=== PATIENT | female | born 1950 | race African-American/Black ===

== ENCOUNTER 2017-07-15 14:25 | Emergency (ER) | payer MEDICARE, OTHER ==
--- NOTE | 2017-07-15 15:06 | ER Document Report ---
ED Medical Screen (RME) - General Chief Complaint: Fall Injury Stated Complaint: FALL/FACIAL INJURY Time Seen by Provider: 07/15/17 15:01 Notes: RME DISCLOSURE I have seen this patient as part of a Rapid Medical Evaluation and, if applicable, placed any initially appropriate orders. The patient will be seen and fully evaluated, including a full history and physical exam, by a provider ( in Main ED or Fast Track) when a room becomes available. 67-year-old female status post fall after tripping over a concrete block and hit her head. Complains of a headache at this time. Not on blood thinners. Tetanus up-to-date within the past few years. TRAVEL OUTSIDE OF THE [place] IN LAST 30 DAYS: No - Related Data Allergies/Adverse Reactions: No Known Allergies Allergy (Verified 07/15/17 14:29) Past Medical History - Social History Chew tobacco use (# tins/day): No Frequency of alcohol use: None Drug Abuse: None - Past Medical History Cardiac Medical History: Reports: Hx Hypertension Pulmonary Medical History: Reports: Hx Bronchitis, Hx Pneumonia Renal/ Medical History: Denies: Hx Peritoneal Dialysis Physical Exam - Vital signs Vitals: Temp Pulse Resp BP Pulse Ox 97.8 F 68 16 186/78 H 97 07/15/17 14:32 07/15/17 14:32 07/15/17 14:32 07/15/17 14:32 07/15/17 14:32 Course - Vital Signs Vital signs: Temp Pulse Resp BP Pulse Ox 97.8 F 68 16 186/78 H 97 07/15/17 14:32 07/15/17 14:32 07/15/17 14:32 07/15/17 14:32 07/15/17 14:32
--- NOTE | 2017-07-15 15:33 | RADIOLOGY REPORT (SQ) ---
EXAM DESCRIPTION: CT HEAD WITHOUT COMPLETED DATE/TIME: 07/15/2017 3:17 pm REASON FOR STUDY: s/p fall COMPARISON: None. TECHNIQUE: Axial images acquired through the brain without intravenous contrast. Images reviewed wi th bone, brain and subdural windows. Images stored on PACS. All CT scanners at this facility use dose modulation, iterative reconstruction, and/or weight based d osing when appropriate to reduce radiation dose to as low as reasonably achievable (ALARA). [facility]: Dose Right [facility]: CareDose [facility]: Dose Right [facility]: Teradose 4D [facility]: Smart Grabbed RADIATION DOSE: CT Rad equipment meets quality standard of care and radiation dose reduction techniq ues were employed. CTDIvol: 53.2 mGy. DLP: 991 mGy-cm. mGy. LIMITATIONS: None. FINDINGS: VENTRICLES: Normal size and contour. CEREBRUM: No masses. No hemorrhage. No midline shift. No evidence for acute infarction. Normal gra y/white matter differentiation. No areas of low density in the white matter. CEREBELLUM: No masses. No hemorrhage. No alteration of density. No evidence for acute infarction. EXTRAAXIAL SPACES: No fluid collections. No masses. ORBITS AND GLOBE: No intra- or extraconal masses. Normal contour of globe without masses. CALVARIUM: No fracture. PARANASAL SINUSES: No fluid or mucosal thickening. SOFT TISSUES: Frontal scalp soft tissue thickening. OTHER: No other significant finding. IMPRESSION: Frontal scalp soft tissue injury without underlying calvarial fracture or intracranial h emorrhage. EVIDENCE OF ACUTE STROKE: NO. COMMENT: Quality ID # [id number]: Final reports with documentation of one or more dose reduction techniques (e.g., Automated exposure control, adjustment of the mA and/or kV according to patient size, use of iterative reconstruction technique) TECHNICAL DOCUMENTATION: JOB ID: [id number] [employer]- All Rights Reserved Reading location - IP/workstation name: [email or web address]
--- NOTE | 2017-07-15 15:36 | RADIOLOGY REPORT (SQ) ---
EXAM DESCRIPTION: CT FACIAL AREA WITHOUT COMPLETED DATE/TIME: 07/15/2017 3:17 pm REASON FOR STUDY: s/p fall COMPARISON: None. TECHNIQUE: Noncontrasted images through the facial bones and orbits windowed for bone and soft tissu e. Additional coronal and sagittal reconstructed images reviewed. All images stored on PACS. All CT scanners at this facility use dose modulation, iterative reconstruction, and/or weight based d osing when appropriate to reduce radiation dose to as low as reasonably achievable (ALARA). [facility]: Dose Right [facility]: CareDose [facility]: Dose Right [facility]: Teradose 4D [facility]: Smart Pulmatrix RADIATION DOSE: CT Rad equipment meets quality standard of care and radiation dose reduction techniq ues were employed. CTDIvol: 30.4 mGy. DLP: 553 mGy-cm. mGy. LIMITATIONS: None. FINDINGS: FACIAL BONES: No fracture or bone lesion. ORBITS: Intact. No fracture. Symmetric intact globes and retroorbital soft tissues. PARANASAL SINUSES: Clear. No significant mucosal thickening, mass or fluid. No nasal polyps. Maxill bunny sinus outlets are patent. SOFT TISSUES: Frontal scalp soft tissue thickening. INFERIOR BRAIN: Limited view. No acute findings. OTHER: No other significant finding. IMPRESSION: Frontal scalp hematoma without underlying maxillofacial fracture. TECHNICAL DOCUMENTATION: JOB ID: [id number] Quality ID # [id number]: Final reports with documentation of one or more dose reduction techniques (e.g., Au tomated exposure control, adjustment of the mA and/or kV according to patient size, use of iterative reconstruction technique) 2010 [employer]- All Rights Reserved Reading location - IP/workstation name: [email or web address]
[2017-07-15] MEDS ORDERED: IBUPROFEN 800 MG TABLET PO ONE (15:39)
[2017-07-15] MEDS ORDERED: DIPH/PERTUSS(ACELL)/TETANUS VAC/PF 0.5 ML SYR (>=10YO) IM ONE (15:39)
--- NOTE | 2017-07-15 15:53 | ER Document Report ---
ED Fall - General Chief Complaint: Fall Injury Stated Complaint: FALL/FACIAL INJURY Time Seen by Provider: 07/15/17 15:01 Mode of Arrival: Ambulatory Information source: Patient Notes: Patient is a 67-year-old female who presents to the ER today for fall just prior to arrival outside of [employer] restaurant where she was walking out of the restaurant and tripped over a barrier in the parking lot, hitting her face on concrete. She did try to catch herself with her left hand but denies any pain to that now. Patient denies loss of consciousness, nausea, vomiting, blurred vision. She has an abrasion to the left side of her nose and an abrasion and some swelling to her forehead. states she is acting normally. She does not know when her last tetanus is. She is on a baby aspirin daily but no other blood thinners. TRAVEL OUTSIDE OF THE [place] IN LAST 30 DAYS: No - Related data Allergies/Adverse Reactions: No Known Allergies Allergy (Verified 07/15/17 14:29) Past Medical History - General Information source: Patient - Social History Smoking Status: Never Smoker Chew tobacco use (# tins/day): No Frequency of alcohol use: None Drug Abuse: None Family History: Reviewed & Not Pertinent Patient has suicidal ideation: No Patient has homicidal ideation: No - Past Medical History Cardiac Medical History: Reports: Hx Hypertension Pulmonary Medical History: Reports: Hx Bronchitis, Hx Pneumonia Renal/ Medical History: Denies: Hx Peritoneal Dialysis Review of Systems - Review of Systems Constitutional: No symptoms reported EENT: No symptoms reported Cardiovascular: No symptoms reported Respiratory: No symptoms reported Gastrointestinal: No symptoms reported Genitourinary: No symptoms reported Female Genitourinary: No symptoms reported Musculoskeletal: No symptoms reported Skin: See HPI Hematologic/Lymphatic: No symptoms reported Neurological/Psychological: No symptoms reported Physical Exam - Vital signs Vitals: Temp Pulse Resp BP Pulse Ox 97.8 F 68 16 186/78 H 97 07/15/17 14:32 07/15/17 14:32 07/15/17 14:32 07/15/17 14:32 07/15/17 14:32 - Notes Notes: PHYSICAL EXAMINATION: GENERAL: Well-appearing and in no acute distress. HEAD: Nonbleeding abrasion to the left side of the nose, hematoma to the center of the forehead with no bleeding, normocephalic. EYES: Pupils equal round and reactive to light, extraocular movements intact, sclera anicteric, conjunctiva are normal. ENT: ear canals without erythema or foreign body, TMs pearly hernandez with good bony landmarks, nares patent without bleeding, oropharynx clear without exudates. Moist mucous membranes. No dental fractures or bleeding in the mouth NECK: Normal range of motion, supple without lymphadenopathy LUNGS: CTAB and equal. No wheezes rales or rhonchi. HEART: Regular rate and rhythm without murmurs ABDOMEN: Soft, no tenderness. No guarding, no rebound BACK: no vertebral tenderness, normal ROM GI/: no CVA tenderness EXTREMITIES: Normal range of motion, no pitting edema. No cyanosis. NEUROLOGICAL: Cranial nerves grossly intact. Normal sensory/motor exams. PSYCH: Normal mood, normal affect. SKIN: Warm, Dry, normal turgor, no rashes or lesions noted Course - Re-evaluation Re-evalutation: 07/15/17 17:37 CT of the head and facial bones negative for any acute pathology. Patient given tetanus that she did not know when her last tetanus was. patient's wounds to her face cleansed with Shur-Clens and saline hair in the emergency department, I did give her Motrin for pain which she appreciated. Patient declines anything further for pain. She denies any pain anywhere else. - Vital Signs Vital signs: Temp Pulse Resp BP Pulse Ox 98.2 F 67 18 179/71 H 94 07/15/17 16:26 07/15/17 16:26 07/15/17 16:26 07/15/17 16:26 07/15/17 16:26 Discharge - Discharge Clinical Impression: Fall Qualifiers: Encounter type: initial encounter Qualified Code(s): W19.XXXA - Unspecified fall, initial encounter Facial injury Qualifiers: Encounter type: initial encounter Qualified Code(s): S09.93XA - Unspecified injury of face, initial encounter Condition: Stable Disposition: HOME, SELF-CARE Additional Instructions: Return immediately for any new or worsening symptoms. Follow up with primary care provider, call tomorrow to make followup appointment. Prescriptions: Ibuprofen [Motrin 800 mg Tablet] 800 mg PO Q8H PRN #30 tab PRN Reason: Referrals: EMILY COTA MD [Primary Care Provider] - Follow up as needed
[2017-07-15 16:28] VITALS: BP 179/71
== END 2017-07-15 16:26 | disposition home or self-care (01) ==
LOC: ER 14:25
DX: S09.93XA Unspecified injury of face, initial encounter (principal); R51 Headache; W01.198A Fall on same level from slipping, tripping and stumbling with subsequent striking against other object, initial encounter; Y92.481 Parking lot as the place of occurrence of the external cause; Z23 Encounter for immunization; Z79.82 Long term (current) use of aspirin; I10 Essential (primary) hypertension
CPT/HCPCS: 99283; 90471; 70450; 70486; 90715; A9270

== ENCOUNTER 2018-12-07 20:59 | Emergency (ER) | payer MEDICARE ==
[2018-12-07] MEDS ORDERED: ASPIRIN 81 MG TABLET, CHEWABLE PO ONE (22:29)
--- NOTE | 2018-12-07 23:26 | RADIOLOGY REPORT (SQ) ---
EXAM DESCRIPTION: [facility]: XR CHEST 2 VIEWS Views: 2 CLINICAL HISTORY: 68 years Female, cp COMPARISON: 02/18/2017 FINDINGS: The lungs are clear. No pneumothorax or significant pleural effusion. Cardiomediastinal silhouette is within normal limits. Bony structures are unremarkable for age. IMPRESSION: 1. No acute cardiothoracic abnormality.
--- NOTE | 2018-12-07 23:37 | EKG REPORT ---
SEVERITY:- BORDERLINE ECG - SINUS RHYTHM BORDERLINE T ABNORMALITIES, ANTERIOR LEADS : Confirmed by: You Bello MD 07-Dec-2018 23:37:20
--- NOTE | 2018-12-08 00:04 | ER Document Report ---
ED General - General Chief Complaint: Chest Pain Stated Complaint: CHEST PAIN Time Seen by Provider: 12/08/18 00:02 Primary Care Provider: NATASHA BLANK MD [ACTIVE STAFF] - Follow up in 3-5 days Notes: Patient is a 68-year-old female that presents to the emergency department for chief complaint of chest pain. Patient states she is been having on and off dull aching chest pain since yesterday, she has had no associated nausea or vomiting, and has not had any significant shortness of breath. Does not seem to be worse with exertion or better with rest. She has had no leg swelling, or redness. She does report she had recent surgery had a hysterectomy about 4 weeks ago, and she was diagnosed with endometrial cancer and that is why she had her hysterectomy, she states that she is cancer free after the surgery. She did not undergo chemotherapy or any other treatments. She denies having any chest pain at this time, and overall is feeling well. Denies prior history of coronary disease, but does have a history of hypertension hyperlipidemia, patient states she is a non-smoker. Past Medical History: Hypertension, GERD, hyperlipidemia, endometrial carcinoma Past Surgical History: Hysterectomy Social History: Denies tobacco, alcohol or drug use. Family History: Reviewed and noncontributory for presenting illness Allergies: Reviewed, see documented allergy list. REVIEW OF SYSTEMS: Other than noted above, the 12 point review of systems was reviewed with the patient and were negative, all pertinent findings are included in the HPI. PHYSICAL EXAMINATION: Vital signs reviewed, nursing noted reviewed. GENERAL: Well-appearing, well-nourished and in no acute distress. HEAD: Atraumatic, normocephalic. EYES: Eyes appear normal, extraocular movements intact, sclera anicteric, conjunctiva are normal. ENT: nares patent, oropharynx clear without exudates. Moist mucous membranes. NECK: Normal range of motion, supple without lymphadenopathy LUNGS: Breath sounds clear to auscultation bilaterally and equal. No wheezes rales or rhonchi. HEART: Regular rate and rhythm without murmurs ABDOMEN: Soft, nontender, normoactive bowel sounds. No rebound, guarding, or rigidity. No masses appreciated. Surgical incisional scar noted, appears to be healing well. EXTREMITIES: Nontender, good range of motion, no pitting or edema. NEUROLOGICAL: No focal neurological deficits. Moves all extremities spontaneously Motor and sensory grossly intact on exam. PSYCH: Normal mood, normal affect. SKIN: Warm, Dry, normal turgor, no rashes or lesions noted on exposed skin TRAVEL OUTSIDE OF THE [place] IN LAST 30 DAYS: No - Related Data Allergies/Adverse Reactions: No Known Allergies Allergy (Verified 07/15/17 14:29) Past Medical History - Social History Smoking Status: Never Smoker Family History: Reviewed & Not Pertinent - Past Medical History Cardiac Medical History: Reports: Hx Hypertension Pulmonary Medical History: Reports: Hx Bronchitis, Hx Pneumonia Renal/ Medical History: Denies: Hx Peritoneal Dialysis Physical Exam - Vital signs Vitals: Temp Pulse Resp BP Pulse Ox 97.8 F 57 L 18 177/61 H 100 12/07/18 21:20 12/07/18 21:20 12/07/18 21:20 12/07/18 21:20 12/07/18 21:20 Course - Re-evaluation Re-evalutation: Patient seen and examined vital signs reviewed. Laboratory data and/or imaging were ordered as appropriate for the patient's presenting symptoms and complaint, with consideration of any critical or life threatening conditions that may be associated with their obtained history and exam as noted above. Patient was treated with potassium replacement, as her potassium is 3.4, aspirin was ordered in triage. Results were reviewed when available and demonstrated unremarkable blood work, negative troponin, negative chest x-ray, however given the patient's recent surgery, and cancer history, I did obtain CT angiogram of the patient's chest, to rule out pulmonary embolism, and this was negative for PE, or any acute cardiopulmonary pathology. The patient was re-evaluated and was stable, had been chest pain-free throughout her entire ED course, her troponin is negative, CTA negative, I did not feel it was necessary to repeat a troponin on this patient, as her pain had been going on and off for a few days now, her troponins been negative, she is not having any further pain. She states she does have reflux disease, and takes Zantac once daily, advised her to increase that to twice daily and to follow-up with the director corporate compliance, for potential repeat stress testing, she states her last was about a year ago and it was negative. Evaluation was most consistent with chest pain, nonspecific, possibly reflux disease, low suspicion for cardiac etiology. Results were discussed with the patient at this point, after careful consideration I feel that that patient can be discharged from the emergency department, the patient was educated treatments and reasons to return to the emergency department based on their presumed diagnosis as noted above, they were advised to followup with a primary care physician in 2-3 days. Patient was agreeable to plan of care. *Note is created using voice recognition software and may contain spelling, syntax or grammatical errors. Laboratory 12/07/18 12/07/18 12/07/18 23:55 23:55 23:55 WBC 3.9 L RBC 3.57 L Hgb 9.8 L Hct 30.0 L MCV 84 MCH 27.6 MCHC 32.7 RDW 14.9 H Plt Count 284 Lymph % (Auto) 35.2 [place] % (Auto) 12.9 Eos % (Auto) 3.9 Baso % (Auto) 0.6 Absolute Neuts (auto) 1.9 Absolute Lymphs (auto) 1.4 Absolute Monos (auto) 0.5 Absolute Eos (auto) 0.2 Absolute Basos (auto) 0.0 Seg Neutrophils % 47.4 Sodium 137.7 Potassium 3.4 L Chloride 100 Carbon Dioxide 29 Anion Gap 9 BUN 7 Creatinine 0.58 Est GFR ( Amer) > 60 Est GFR (MDRD) Non-Af > 60 Glucose 101 Calcium 9.9 Total Bilirubin 0.8 Direct Bilirubin 0.2 Neonat Total Bilirubin Not Reportable Neonat Direct Bilirubin Not Reportable Neonat Indirect Bili Not Reportable AST 30 ALT 18 Alkaline Phosphatase 69 Creatine Kinase 69 CK-MB (CK-2) 0.59 Troponin I < 0.012 Total Protein 7.7 Albumin 4.4 Chest X-Ray 12/07/18 00:00 IMPRESSION: 1. No acute cardiothoracic abnormality. - Vital Signs Vital signs: Temp Pulse Resp BP Pulse Ox 98.2 F 63 12 171/71 H 100 12/08/18 02:43 12/08/18 02:43 12/08/18 02:43 12/08/18 02:43 12/08/18 02:43 - Laboratory Result Diagrams: 12/07/18 23:55 12/07/18 23:55 Laboratory results interpreted by me: 12/07/18 12/07/18 23:55 23:55 WBC 3.9 L RBC 3.57 L Hgb 9.8 L Hct 30.0 L RDW 14.9 H Potassium 3.4 L - EKG Interpretation by Me Additional EKG results interpreted by me: EKG demonstrates sinus rhythm with a ventricular rate of 63 bpm, normal axis, normal intervals, no ST elevation noted, no prior for comparison. Discharge - Discharge Clinical Impression: Hypokalemia Chest pain Qualifiers: Chest pain type: unspecified Qualified Code(s): R07.9 - Chest pain, unspecified Condition: Stable Disposition: HOME, SELF-CARE Instructions: Chest Pain of Unclear Cause ([facility]) Additional Instructions: I recommend increasing your Zantac 150 mg twice daily, please follow-up with your primary care, I have also listed a director corporate compliance, that works with [employer], to follow-up with, for possible repeat stress testing. Otherwise continue your home medications, and follow-up with your primary care. Referrals: NATASHA BLANK MD [ACTIVE STAFF] - Follow up in 3-5 days
[2018-12-08 00:11] LABS: ABSOLUTE EOSINOPHILS # (AUTO) 0.2 10^3/uL (0.0-0.6); ABSOLUTE LYMPHOCYTES (AUTO) 1.4 10^3/uL (0.5-4.7); ABSOLUTE MONOCYTES (AUTO) 0.5 10^3/uL (0.1-1.4); ABSOLUTE NEUT (AUTO) 1.9 10^3/uL (1.7-8.2); BASOPHILS % (AUTO) 0.6 % (0-2); EOSINOPHILS % (AUTO) 3.9 % (0-6); HEMOGLOBIN 9.8 g/dL (12.0-15.5); LYMPHOCYTES % (AUTO) 35.2 % (13-45); MEAN CORPUSCULAR HEMOGLOBIN 27.6 pg (27.0-33.4); MEAN CORPUSCULAR HGB CONC 32.7 g/dL (32.0-36.0); MEAN CORPUSCULAR VOLUME 84 fl (80-97); MONOCYTES % (AUTO) 12.9 % (3-13); PLATELET COUNT 284 10^3/uL (150-450); RED BLOOD COUNT 3.57 10^6/uL (3.72-5.28); RED CELL DISTRIBUTION WIDTH 14.9 % (11.5-14.0); SEGMENTED NEUTROPHILS % (AUTO) 47.4 % (42-78); TOTAL CELLS COUNTED % (AUTO) 100 %; WHITE BLOOD COUNT 3.9 10^3/uL (4.0-10.5)
[2018-12-08 00:35] LABS: ALBUMIN 4.4 g/dL (3.5-5.0); ALKALINE PHOSPHATASE 69 U/L (38-126); ANION GAP 9 (5-19); ASPARTATE AMINO TRANSFERASE 30 U/L (14-36); BILIRUBIN,DIRECT 0.2 mg/dL (0.0-0.4); BILIRUBIN,TOTAL 0.8 mg/dL (0.2-1.3); BLOOD UREA NITROGEN 7 mg/dL (7-20); CALCIUM 9.9 mg/dL (8.4-10.2); CARBON DIOXIDE 29 mmol/L (22-30); CHLORIDE 100 mmol/L (98-107); CREATINE KINASE 69 U/L (30-135); GLUCOSE 101 mg/dL (75-110); POTASSIUM 3.4 mmol/L (3.6-5.0); TOTAL PROTEIN 7.7 g/dL (6.3-8.2)
[2018-12-08] MEDS ORDERED: POTASSIUM CHLORIDE 10 MEQ CAPSULE.ER PO ONE (00:40)
[2018-12-08 00:45] LABS: CREATINE KINASE MB 0.59 ng/mL (<4.55)
[2018-12-08 00:46] LABS: TROPONIN I < 0.012 ng/mL
--- NOTE | 2018-12-08 02:08 | RADIOLOGY REPORT (SQ) ---
EXAM DESCRIPTION: CT CHEST ANGIOGRAPHY WITHOUT THEN WITH IV CONTRAST COMPLETED DATE/TME: 12/08/2018 00:40 CLINICAL HISTORY: 68 years Female, chest pain, recent surgery. HYSTERECTOMY 4 WEEKS AGO. Comparison: CR, same day. Technique: IV contrast. Coronal and sagittal reformat. 3d reconstruction. This exam was performed according to our departmental dose-optimization program, which includes automated exposure control, adjustment of the mA and/or kV according to patient size and/or use of iterative reconstruction technique.[facility]: Dose Right [facility]: CareDose [facility]: Dose Right [facility]: Teradose 4D [facility]: Smart [employer] LIMITATIONS: Quality of pulmonary arteriogram: Suboptimal. Findings: No pulmonary embolus. No right ventricular strain. Clear lungs. Old granulomatous disease. Inferior neck, axillae, mediastinum, airway, lymphatics, heart, vasculature, upper abdomen, and musculoskeleton appear otherwise unremarkable. Impression: No pulmonary embolus. No acute cardiopulmonary findings.
[2018-12-08 02:44] VITALS: BP 171/71
== END 2018-12-08 02:56 | disposition home or self-care (01) ==
LOC: ER 20:59
DX: E87.6 Hypokalemia (principal); R07.9 Chest pain, unspecified; I10 Essential (primary) hypertension
CPT/HCPCS: 93005; 99285; 36415; 82553; 82550; 85025; 80053; 84484; 71046; 71275; 93010; A9270 ×2

== ENCOUNTER 2020-03-25 11:32 | Inpatient (IN) | payer MEDICARE ==
--- NOTE | 2020-03-25 11:46 | ER Document Report ---
ED General - General Chief Complaint: Shortness Of Breath Stated Complaint: SHORTNESS OF BREATH Time Seen by Provider: 03/25/20 11:34 Mode of Arrival: Medic Information source: Patient TRAVEL OUTSIDE OF THE [place] IN LAST 30 DAYS: No - HPI Notes: Patient presents with shortness of breath. She states she had a positive Covid test 4 days ago at an outlying facility. She states since that time she has become progressively more short of breath with a dry cough. Some fever chills and fatigue as well. Her is also ill. She states that she was di scharged with vitamins and an anticoagulant. She denies being given any steroids or antibiotics. No vomiting or diarrhea. The shortness of breath is moderate to severe. Constant. Worse with exertion better with rest. - Related Data Allergies/Adverse Reactions: No Known Allergies Allergy (Verified 03/25/20 12:07) Past Medical History - General Information source: Patient - Social History Smoking Status: Never Smoker Frequency of alcohol use: None Drug Abuse: None Family History: Reviewed & Not Pertinent - Past Medical History Cardiac Medical History: Reports: Hx Hypertension Pulmonary Medical History: Reports: Hx Bronchitis, Hx Pneumonia Renal/ Medical History: Denies: Hx Peritoneal Dialysis Review of Systems - Review of Systems Constitutional: Chills, Fever, Malaise, Weakness Cardiovascular: denies: Chest pain, Palpitations Respiratory: Cough, Short of breath -: Yes All other systems reviewed and negative Physical Exam - Vital signs Vitals: Temp Pulse Ox 98.6 F 93 03/25/20 11:34 03/25/20 11:34 Interpretation: Normal - General General appearance: Appears well, Alert - HEENT Head: Normocephalic, Atraumatic Eyes: Normal Pupils: PERRL - Respiratory Respiratory status: Respiratory distress Breath sounds: Normal - Cardiovascular Rhythm: Regular Heart sounds: Normal auscultation Murmur: No - Abdominal Inspection: Normal Distension: No distension - Back Back: Normal, Nontender - Extremities General upper extremity: Normal inspection, Normal color, Normal ROM General lower extremity: Normal inspection, Normal color, Normal ROM - Neurological Neuro grossly intact: Yes Cognition: Normal Orientation: AAOx4 Brayan Coma Scale Eye Opening: Spontaneous Brayan Coma Scale Verbal: Oriented Brayan Coma Scale Motor: Obeys Commands Sunshine Coma Scale Total: 15 Speech: Normal Motor strength normal: LUE, RUE, LLE, RLE Sensory: Normal - Psychological Associated symptoms: Normal affect, Normal mood - Skin Skin Temperature: Warm Skin Moisture: Dry Skin Color: Normal Course - Re-evaluation Re-evalutation: 03/25/20 15:06 Patient presents with a known positive diagnosis of Covid. CT shows Covid pneumonia. Patient was ambulated with saturations decreasing into the 70% range. Patient will require admission for further treatment. - Vital Signs Vital signs: Temp Pulse Resp BP Pulse Ox 98.6 F 38 H 148/78 H 98 03/25/20 11:34 03/25/20 13:01 03/25/20 13:01 03/25/20 13:01 - Laboratory Results Result Diagrams: 03/25/20 11:55 03/25/20 11:55 Laboratory Results Interpreted: 03/25/20 03/25/20 03/25/20 11:55 11:55 12:45 WBC 3.6 L Hgb 10.7 L Hct 31.6 L RDW 14.1 H Lymph % (Auto) 11.0 L Absolute Lymphs (auto) 0.4 L Seg Neutrophils % 78.1 H VBG pH 7.46 H Sodium 134.5 L Potassium 3.3 L Carbon Dioxide 31 H AST 209 H ALT 250 H Urine Protein Urine Ketones 03/25/20 14:22 WBC Hgb Hct RDW Lymph % (Auto) Absolute Lymphs (auto) Seg Neutrophils % VBG pH Sodium Potassium Carbon Dioxide AST ALT Urine Protein 30 H Urine Ketones 20 H Critical Laboratory Results Reviewed: No Critical Results - Radiology Results Critical Radiology Results Reviewed: No Critical Results Discharge - Discharge Clinical Impression: Pneumonia due to COVID-19 virus Condition: Serious Disposition: ADMITTED INPATIENT Admitting Provider: Subha (Hospitalist) Unit Admitted: [facility]
--- NOTE | 2020-03-25 12:14 | RADIOLOGY REPORT (SQ) ---
EXAM DESCRIPTION: CHEST SINGLE VIEW IMAGES COMPLETED DATE/TIME: 03/25/2020 8:50 am REASON FOR STUDY: bed 6 sepsis protocol COMPARISON: 12/07/2018 EXAM PARAMETERS: NUMBER OF VIEWS: One view. TECHNIQUE: Single frontal radiographic view of the chest acquired. RADIATION DOSE: NA LIMITATIONS: None. FINDINGS: LUNGS AND PLEURA: Patchy bibasilar opacities may be infectious in etiology. No visualized pleural effusion or pneumothorax. MEDIASTINUM AND HILAR STRUCTURES: No masses. Contour normal. HEART AND VASCULAR STRUCTURES: Prominence of the cardiac silhouette likely due to AP technique. No s ignificant pulmonary vascular congestion. BONES: No acute findings. HARDWARE: None in the chest. OTHER: No other significant finding. IMPRESSION: New bibasilar opacities concerning for infection. Possible component of atelectasis. TECHNICAL DOCUMENTATION: JOB ID: [id number] 2010 [employer]- All Rights Reserved Reading location - IP/workstation name: [email or web address]
[2020-03-25 12:30] LABS: ABSOLUTE LYMPHOCYTES (AUTO) 0.4 10^3/uL (0.5-4.7); ABSOLUTE MONOCYTES (AUTO) 0.4 10^3/uL (0.1-1.4); ABSOLUTE NEUT (AUTO) 2.8 10^3/uL (1.7-8.2); BASOPHILS % (AUTO) 0.1 % (0-2); EOSINOPHILS % (AUTO) 0.1 % (0-6); HEMATOCRIT 31.6 % (36.0-47.0); HEMOGLOBIN 10.7 g/dL (12.0-15.5); MEAN CORPUSCULAR HEMOGLOBIN 28.3 pg (27.0-33.4); MEAN CORPUSCULAR HGB CONC 33.8 g/dL (32.0-36.0); MEAN CORPUSCULAR VOLUME 84 fl (80-97); MONOCYTES % (AUTO) 10.7 % (3-13); PLATELET COUNT 293 10^3/uL (150-450); RED BLOOD COUNT 3.77 10^6/uL (3.72-5.28); RED CELL DISTRIBUTION WIDTH 14.1 % (11.5-14.0); SEGMENTED NEUTROPHILS % (AUTO) 78.1 % (42-78); TOTAL CELLS COUNTED % (AUTO) 100 %; WHITE BLOOD COUNT 3.6 10^3/uL (4.0-10.5)
[2020-03-25 12:44] LABS: INTERNATIONAL RATION (INR) 1.14; PROTHROMBIN TIME 14.8 SEC (11.4-15.4)
[2020-03-25 12:47] LABS: ALBUMIN 3.6 g/dL (3.5-5.0); ALKALINE PHOSPHATASE 66 U/L (38-126); ANION GAP 5 (5-19); ASPARTATE AMINO TRANSFERASE 209 U/L (14-36); BILIRUBIN,DIRECT 0.2 mg/dL (0.0-0.4); BLOOD UREA NITROGEN 10 mg/dL (7-20); CARBON DIOXIDE 31 mmol/L (22-30); CHLORIDE 99 mmol/L (98-107); GLUCOSE 109 mg/dL (75-110); POTASSIUM 3.3 mmol/L (3.6-5.0); TOTAL PROTEIN 7.4 g/dL (6.3-8.2)
[2020-03-25 13:08] LABS: VENOUS BLOOD BASE EXCESS 3.3 mmol/L; VENOUS BLOOD HCO3 27.2 mmol/L (20-32); VENOUS BLOOD PCO2 38.9 mmHg (35-63); VENOUS BLOOD PH 7.46 (7.30-7.42)
--- NOTE | 2020-03-25 14:19 | EKG REPORT ---
SEVERITY:- NORMAL ECG - SINUS RHYTHM : Confirmed by: Salome Dillard MD 25-Mar-2020 14:18:20
--- NOTE | 2020-03-25 15:00 | RADIOLOGY REPORT (SQ) ---
EXAM DESCRIPTION: CTA CHEST IMAGES COMPLETED DATE/TIME: 03/25/2020 2:39 pm REASON FOR STUDY: sob COMPARISON: 12/08/2018 TECHNIQUE: CT scan of the chest performed using helical scanning technique with dynamic intravenous contrast injection. Images reviewed with lung, soft tissue and bone windows. Reconstructed coronal and sagittal MPR images reviewed. Additional 3 dimensional post-processing performed to develop Maximal Intensity Projection images (OK P). All images stored on PACS. All CT scanners at this facility use dose modulation, iterative reconstruction, and/or weight based d osing when appropriate to reduce radiation dose to as low as reasonably achievable (ALARA). [facility]: Dose Right [facility]: CareDose [facility]: Dose Right [facility]: Teradose 4D [facility]: Revision3 CONTRAST TYPE AND DOSE: contrast/concentration: Isovue 350.00 mmol/ml; Total Contrast Delivered: 68. 0 ml; Total Saline Delivered: 63.0 ml RENAL FUNCTION: GFR > 60. RADIATION DOSE: CT Rad equipment meets quality standard of care and radiation dose reduction techniq ues were employed. CTDIvol: 6.6 - 23.7 mGy. DLP: 815 mGy-cm. . LIMITATIONS: None. FINDINGS: LUNGS AND PLEURA: Diffuse bilateral airspace disease with associated ground-glass attenuat ion. No evidence of cavitation. No effusions. AORTA AND GREAT VESSELS: No aneurysm. No dissection. HEART: No pericardial effusion. Cardiomegaly. PULMONARY ARTERIES: No emboli visualized in the main pulmonary arteries or the segmental branches. HILAR AND MEDIASTINAL STRUCTURES: No identified masses or abnormal nodes. HARDWARE: None in the chest. UPPER ABDOMEN: No significant findings. Limited exam. THYROID AND OTHER SOFT TISSUES: No masses. No adenopathy. BONES: No acute or significant finding. 3D MIPS: Confirm above findings. OTHER: No other significant finding. IMPRESSION: 1. No PE. 2. Bilateral pneumonia. COMMENT: Commonly reported imaging features of COVID-19 pneumonia are present. Other processes suc h as influenza pneumonia and organizing pneumonia, as can be seen with drug toxicity and connective t issue disease, can cause a similar imaging pattern. [facility] Quality ID # [id number]: Final reports with documentation of one or more dose reduction techniques (e.g., Au tomated exposure control, adjustment of the mA and/or kV according to patient size, use of iterative reconstruction technique) TECHNICAL DOCUMENTATION: JOB ID: [id number] 2010 [employer]- All Rights Reserved Reading location - IP/workstation name: [email or web address]
[2020-03-25 15:01] LABS: APPEARANCE,URINE SLIGHTLY-CLOUDY; BILIRUBIN,URINE NEGATIVE (NEGATIVE); COLOR,URINE YELLOW; GLUCOSE, URINE NEGATIVE (NEGATIVE); KETONES,URINE 20 mg/dL (NEGATIVE); LEUKOCYTE ESTERASE,URINE NEGATIVE (NEGATIVE); NITRITE,URINE NEGATIVE (NEGATIVE); PROTEIN,URINE 30 mg/dL (NEGATIVE); URINE SPECIFIC GRAVITY 1.019; UROBILINOGEN,URINE NEGATIVE mg/dL (<2.0)
[2020-03-25] MEDS ORDERED: ACETAMINOPHEN 325 MG TABLET PO PRN (16:59)
[2020-03-25] MEDS ORDERED: ONDANSETRON HCL INJ/PF 4 MG/2 ML SDV IV PRN (16:59)
[2020-03-25] MEDS ORDERED: ONDANSETRON 4 MG TAB.RAPDIS PO PRN (16:59)
[2020-03-25] MEDS ORDERED: BISACODYL 10 MG SUPP.RECT PR PRN (17:07)
[2020-03-25] MEDS ORDERED: BISACODYL 5 MG TABEC PO PRN (17:07)
[2020-03-25] MEDS ORDERED: DOXYCYCLINE HYCLATE INJ 100 MG VIAL IV SCH (17:15)
[2020-03-25] MEDS ORDERED: IVERMECTIN 3 MG TABLET PO SCH (17:15)
[2020-03-25] MEDS: VITAMIN B COMPLEX TABLET PO SCH (18:00)
[2020-03-25] MEDS: ZINC SULFATE 220 MG CAPSULE PO SCH (18:00)
[2020-03-25] MEDS: ASCORBIC ACID 500 MG TABLET PO SCH (18:36)
[2020-03-25] MEDS: IVERMECTIN 3 MG TABLET PO SCH (18:36)
[2020-03-25] MEDS: CHOLECALCIFEROL (D3) 1,000 UNIT (25 MCG) TABLET PO SCH (18:39)
--- NOTE | 2020-03-25 18:59 | PDOC H&P ---
History of Present Illness Admission Date/PCP: 03/25/20 15:22 History of Present Illness: KARINA LAROSE is a 69 year old female with past medical history significant for HTN, HLD, cervical cancer status post total hysterectomy presents to the ED with 8-day history progressive headache/diarrhea/shortness of breath/POSEY which patient states started on 03/18 and she subsequently had a COVID-19 test which came back positive on 03/20. From there, patient symptoms gradually worsened until she was rather short of breath and required evaluation in the ED. Her also tested positive for COVID-19 and he is currently being admitted to the hospital as well reportedly. Patient's rapid Covid test in the ED was negative though this is very likely a false negative and she will be treated as Covid positive. Patient denies any fever/chills/cough. On admission, labs revealed very mild hypokalemia and oxygen desaturation with any ambulation dropping at times down into the 70s and 80s. Patient does not wear oxygen at home. Patient initially refused admission because her friends have been telling her she would get much worse Covid if she was surrounded by other people with Covid however the ED physician convince her to stay in the hospital and she agreed to admission. She was started on [facility] COVID-19 treatment protocol. Past Medical History Cardiac Medical History: Reports: Hypertension Pulmonary Medical History: Reports: Bronchitis, Pneumonia Past Surgical History Past Surgical History: Reports: Hysterectomy Social History Information Source: Patient Smoking Status: Never Smoker Electronic Cigarette use?: No - Advance Directive Resuscitation Status: Full Code Surrogate healthcare decision maker:: Admitting diagnosis: COVID-19 pneumonia All aspects of code status discussed with patient/POA including cardioversion, chest compressions, and intubation and the patient/POA indicated they wish to be full code MPOA is designated as: DaughterPatrice Time spent: Greater than 16 minutes Family History Family History: Reviewed & Not Pertinent, CAD, Malignancy Parental Family History Reviewed: Yes Children Family History Reviewed: Yes Sibling(s) Family History Reviewed.: Yes Medication/Allergy Home Medications: Aspirin [Aspirin EC] 81 mg PO DAILY 02/18/17 Telmisartan [Micardis] 40 mg PO DAILY 02/18/17 Ibuprofen [Motrin 800 mg Tablet] 800 mg PO Q8H PRN #30 tab 07/15/17 Allergies/Adverse Reactions: No Known Allergies Allergy (Verified 03/25/20 12:07) Review of Systems All systems: reviewed and no additional remarkable complaints except as stated - Per HPI otherwise negative Physical Exam Vital Signs: Temp Pulse Resp BP Pulse Ox 98.6 F 38 H 148/78 H 98 03/25/20 11:34 03/25/20 13:01 03/25/20 13:01 03/25/20 13:01 Intake & Output 03/24/20 03/25/20 03/26/20 06:59 06:59 06:59 Output Total 655 Balance -655 Weight 99.79 kg Exam: General appearance: PRESENT: no acute distress, well-developed, well-nourished, morbidly obese with BMI 32.5, -[place] female, appears acutely ill Head exam: PRESENT: atraumatic, normocephalic Eye exam: PRESENT: conjunctiva pink. ABSENT: scleral icterus Mouth exam: PRESENT: moist Respiratory exam: PRESENT: Mild crackles bilaterally ABSENT: rales, rhonchi, wheezes Cardiovascular exam: PRESENT: RRR. ABSENT: diastolic murmur, rubs, systolic murmur GI/Abdominal exam: PRESENT: normal bowel sounds, soft. ABSENT: distended, guarding, mass, organolmegaly, rebound, tenderness Neurological exam: PRESENT: alert, awake, oriented to person, oriented to place, oriented to time, oriented to situation Psychiatric exam: PRESENT: appropriate affect, normal mood Skin exam: PRESENT: dry, intact, warm Results Laboratory Results: 03/25/20 11:55 03/25/20 11:55 03/25/20 03/25/20 03/25/20 11:55 11:55 12:45 WBC 3.6 L RBC 3.77 Hgb 10.7 L Hct 31.6 L MCV 84 MCH 28.3 MCHC 33.8 RDW 14.1 H Plt Count 293 Seg Neutrophils % 78.1 H VBG pH 7.46 H VBG pCO2 38.9 VBG HCO3 27.2 VBG Base Excess 3.3 Sodium 134.5 L Potassium 3.3 L Chloride 99 Carbon Dioxide 31 H Anion Gap 5 BUN 10 Creatinine 0.64 Est GFR ( Amer) > 60 Glucose 109 Lactic Acid Calcium 9.0 Total Bilirubin 1.0 AST 209 H Alkaline Phosphatase 66 Total Protein 7.4 Albumin 3.6 Urine Color Urine Appearance Urine pH Ur Specific [place] Urine Protein Urine Glucose (UA) Urine Ketones Urine Blood Urine Nitrite Ur Leukocyte Esterase Urine WBC (Auto) Urine RBC (Auto) 03/25/20 03/25/20 12:45 14:22 WBC RBC Hgb Hct MCV MCH MCHC RDW Plt Count Seg Neutrophils % VBG pH VBG pCO2 VBG HCO3 VBG Base Excess Sodium Potassium Chloride Carbon Dioxide Anion Gap BUN Creatinine Est GFR ( Amer) Glucose Lactic Acid 1.1 Calcium Total Bilirubin AST Alkaline Phosphatase Total Protein Albumin Urine Color YELLOW Urine Appearance SLIGHTLY-CLOUDY Urine pH 6.0 Ur Specific [place] 1.019 Urine Protein 30 H Urine Glucose (UA) NEGATIVE Urine Ketones 20 H Urine Blood NEGATIVE Urine Nitrite NEGATIVE Ur Leukocyte Esterase NEGATIVE Urine WBC (Auto) 6 Urine RBC (Auto) 2 03/25/20 11:55 Troponin I < 0.012 Impressions: Chest X-Ray 03/25/20 11:34 IMPRESSION: New bibasilar opacities concerning for infection. Possible component of atelectasis. Chest/Abdomen CTA 03/25/20 11:42 IMPRESSION: 1. No PE. 2. Bilateral pneumonia. Assessment and Plan - Diagnosis (1) Pneumonia due to COVID-19 virus Is this a current diagnosis for this admission?: Yes Plan: -Symptoms/history consistent with covid-19 infection -Covid-19 test: Positive on 03/20, symptoms began on 03/18 -CXR showed: Bilateral infiltrates -CTPA showed: Negative for PE, bilateral pneumonia consistent with COVID-19 -standard of care vitamin supplements: zinc, ascorbic acid, vitamin d, melatonin -maintain magnesium of 2 mg/dL or higher -Current literature recommends against the use of remdesivir, plaquenil, and convalescent plasma -supplemental oxygen and BiPAP/CPAP as needed -prn combivent/nebs as able -do not hold anticoagulation unless actively bleeding or platelet count <50 -close monitoring for acute respiratory decline requiring ICU transfer and intubation -ivermectin/doxycycline combination therapy (2) Acute hypoxemic respiratory failure Is this a current diagnosis for this admission?: Yes Plan: Source is COVID-19 pneumonia Treatment as above Supplemental oxygen and positive pressure as needed (3) HTN (hypertension) Qualifiers: Hypertension type: essential hypertension Qualified Code(s): I10 - Essential (primary) hypertension Is this a current diagnosis for this admission?: Yes Plan: Home medication continued (4) HLD (hyperlipidemia) Qualifiers: Hyperlipidemia type: unspecified Qualified Code(s): E78.5 - Hyperlipidemia, unspecified Is this a current diagnosis for this admission?: Yes Plan: Diet controlled (5) History of cervical cancer Is this a current diagnosis for this admission?: Yes Plan: Status post total hysterectomy - Time Time Spent with patient: 35 or more minutes Medications reviewed and adjusted accordingly: Yes Anticipated Discharge Disposition: Home, Self Care Anticipated Discharge Timeframe: within 72 hours - Inpatient Certification Based on my medical assessment, after consideration of the patient's comorbidities, presenting symptoms, or acuity I expect that the services needed warrant INPATIENT care.: Yes I certify that my determination is in accordance with my understanding of Medicare's requirements for reasonable and necessary INPATIENT services [42 CFR 412.3e].: Yes Medical Necessity: Significant Comorbidiites Make Outpatient Treatment Too Risky, Need Close Monitoring Due to Risk of Patient Decompensation, Need For Continuous Telemetry Monitoring, Risk of Complication if Not Cared For in Hospital, Risk of Diagnosis Which Will Require Inpatient Eval/Care/Monitoring
[2020-03-25] MEDS: ENOXAPARIN SODIUM INJ 60 MG/0.6 ML DISP.SYRIN SUBCUT SCH (21:00)
[2020-03-25] MEDS: MELATONIN 5 MG TABLET PO SCH (22:03)
[2020-03-25] MEDS: DOXYCYCLINE HYCLATE 100 MG in DEXTROSE 5%-WATER 250 ML IV SCH (22:04)
[2020-03-26] MEDS: ENOXAPARIN SODIUM INJ 60 MG/0.6 ML DISP.SYRIN SUBCUT SCH ×2 (05:48→17:45)
[2020-03-26 07:41] LABS: ABSOLUTE LYMPHOCYTES (AUTO) 0.7 10^3/uL (0.5-4.7); ABSOLUTE MONOCYTES (AUTO) 0.5 10^3/uL (0.1-1.4); ABSOLUTE NEUT (AUTO) 2.5 10^3/uL (1.7-8.2); BASOPHILS % (AUTO) 0.4 % (0-2); EOSINOPHILS % (AUTO) 0.4 % (0-6); HEMATOCRIT 28.5 % (36.0-47.0); HEMOGLOBIN 9.4 g/dL (12.0-15.5); LYMPHOCYTES % (AUTO) 18.8 % (13-45); MEAN CORPUSCULAR HEMOGLOBIN 27.5 pg (27.0-33.4); MEAN CORPUSCULAR HGB CONC 32.8 g/dL (32.0-36.0); MEAN CORPUSCULAR VOLUME 84 fl (80-97); MONOCYTES % (AUTO) 12.5 % (3-13); RED BLOOD COUNT 3.41 10^6/uL (3.72-5.28); RED CELL DISTRIBUTION WIDTH 13.9 % (11.5-14.0); SEGMENTED NEUTROPHILS % (AUTO) 67.9 % (42-78); TOTAL CELLS COUNTED % (AUTO) 100 %; WHITE BLOOD COUNT 3.7 10^3/uL (4.0-10.5)
[2020-03-26 08:07] LABS: BLOOD UREA NITROGEN 9 mg/dL (7-20); CALCIUM 8.5 mg/dL (8.4-10.2); CARBON DIOXIDE 27 mmol/L (22-30); CHLORIDE 102 mmol/L (98-107); GLUCOSE 95 mg/dL (75-110); PHOSPHORUS 3.1 mg/dL (2.5-4.5); POTASSIUM 3.8 mmol/L (3.6-5.0)
[2020-03-26 08:12] LABS: ANION GAP 5 (5-19)
[2020-03-26 08:35] LABS: PLATELET COUNT 292 10^3/uL (150-450)
[2020-03-26] MEDS: LOSARTAN POTASSIUM 50 MG TABLET PO SCH (09:15)
[2020-03-26] MEDS: ASCORBIC ACID 500 MG TABLET PO SCH ×2 (09:15→17:46)
[2020-03-26] MEDS: ZINC SULFATE 220 MG CAPSULE PO SCH (09:15)
[2020-03-26] MEDS: DOCUSATE SODIUM 100 MG CAPSULE PO SCH (09:15)
[2020-03-26] MEDS: CHOLECALCIFEROL (D3) 1,000 UNIT (25 MCG) TABLET PO SCH (09:15)
[2020-03-26] MEDS: VITAMIN B COMPLEX TABLET PO SCH (09:15)
[2020-03-26] MEDS ORDERED: TELMISARTAN 40 MG PO SCH (10:00)
--- NOTE | 2020-03-26 17:44 | PDOC PROGRESS REPORT ---
Subjective Subjective:: KARINA LAROSE is a 69 year old female with past medical history significant for HTN, HLD, cervical cancer status post total hysterectomy presents to the ED with 8-day history progressive headache/diarrhea/shortness of breath/POSEY which patient states started on 03/18 and she subsequently had a COVID-19 test which came back positive on 03/20. From there, patient symptoms gradually worsened until she was rather short of breath and required evaluation in the ED. Her also tested positive for COVID-19 and he is currently being admitted to the hospital as well reportedly. Patient's rapid Covid test in the ED was negative though this is very likely a false negative and she will be treated as Covid positive. Patient denies any fever/chills/cough. On admission, labs revealed very mild hypokalemia and oxygen desaturation with any ambulation dropping at times down into the 70s and 80s. Patient does not wear oxygen at home. Patient initially refused admission because her friends have been telling her she would get much worse Covid if she was surrounded by other people with Covid however the ED physician convince her to stay in the hospital and she agreed to admission. She was started on [facility] COVID-19 treatment protocol. 03/26/2020 Pt doing well today, inflammatory markers will be rechecked tomorrow. I expect these to be lower on the other check tomorrow. Patient has saturation 90% on 2 L nasal cannula. I believe we can start weaning her oxygen in the next 24 to 48 hours. Overall, she appears to be doing quite well all things considered. Her urine culture is growing gram-negative rods although the UA did not show clear evidence of infection and she has no urinary complaints. She has no new complaints today. Reason For Visit: COVID 19,PNEUMONIA, ACUTE HYPOXIC RESPIRATORY Physical Exam Vital Signs: Temp Pulse Resp BP Pulse Ox 97.8 F 71 18 149/60 H 93 03/26/20 11:58 03/26/20 14:00 03/26/20 11:58 03/26/20 11:58 03/26/20 11:58 Intake & Output 03/25/20 03/26/20 03/27/20 06:59 06:59 06:59 Intake Total 250 Output Total 655 Balance -405 Weight 100.8 kg Exam: General appearance: PRESENT: no acute distress, well-developed, well-nourished, morbidly obese with BMI 32.5, -[place] female, states she is breathing without much difficulty today Head exam: PRESENT: atraumatic, normocephalic Eye exam: PRESENT: conjunctiva pink. ABSENT: scleral icterus Mouth exam: PRESENT: moist Respiratory exam: PRESENT: Mild crackles bilaterally ABSENT: rales, rhonchi, wheezes Cardiovascular exam: PRESENT: RRR. ABSENT: diastolic murmur, rubs, systolic murmur GI/Abdominal exam: PRESENT: normal bowel sounds, soft. ABSENT: distended, guarding, mass, organolmegaly, rebound, tenderness Neurological exam: PRESENT: alert, awake, oriented to person, oriented to place, oriented to time, oriented to situation Psychiatric exam: PRESENT: appropriate affect, normal mood Skin exam: PRESENT: dry, intact, warm Results Laboratory Results: 03/26/20 05:54 03/26/20 05:54 03/25/20 03/25/20 03/25/20 11:55 11:55 14:22 WBC RBC Hgb Hct MCV MCH MCHC RDW Plt Count Seg Neutrophils % Sodium Potassium Chloride Carbon Dioxide Anion Gap BUN Creatinine Est GFR ( Amer) Glucose Lactic Acid Calcium Phosphorus Magnesium Ferritin 2640.00 H C-Reactive Protein 184.0 H Urine Color YELLOW Urine Appearance SLIGHTLY-CLOUDY Urine pH 6.0 Ur Specific [place] 1.019 Urine Protein 30 H Urine Glucose (UA) NEGATIVE Urine Ketones 20 H Urine Blood NEGATIVE Urine Nitrite NEGATIVE Ur Leukocyte Esterase NEGATIVE Urine WBC (Auto) 6 Urine RBC (Auto) 2 03/25/20 03/25/20 03/26/20 19:00 22:30 05:54 WBC 3.7 L RBC 3.41 L Hgb 9.4 L Hct 28.5 L MCV 84 MCH 27.5 MCHC 32.8 RDW 13.9 Plt Count 292 Seg Neutrophils % 67.9 Sodium Potassium Chloride Carbon Dioxide Anion Gap BUN Creatinine Est GFR ( Amer) Glucose Lactic Acid 1.1 0.9 Calcium Phosphorus Magnesium Ferritin C-Reactive Protein Urine Color Urine Appearance Urine pH Ur Specific [place] Urine Protein Urine Glucose (UA) Urine Ketones Urine Blood Urine Nitrite Ur Leukocyte Esterase Urine WBC (Auto) Urine RBC (Auto) 03/26/20 05:54 WBC RBC Hgb Hct MCV MCH MCHC RDW Plt Count Seg Neutrophils % Sodium 133.2 L Potassium 3.8 Chloride 102 Carbon Dioxide 27 Anion Gap 5 BUN 9 Creatinine 0.53 Est GFR ( Amer) > 60 Glucose 95 Lactic Acid Calcium 8.5 Phosphorus 3.1 Magnesium 2.2 Ferritin C-Reactive Protein Urine Color Urine Appearance Urine pH Ur Specific [place] Urine Protein Urine Glucose (UA) Urine Ketones Urine Blood Urine Nitrite Ur Leukocyte Esterase Urine WBC (Auto) Urine RBC (Auto) 03/25/20 11:55 Troponin I < 0.012 Impressions: Chest X-Ray 03/25/20 11:34 IMPRESSION: New bibasilar opacities concerning for infection. Possible component of atelectasis. Chest/Abdomen CTA 03/25/20 11:42 IMPRESSION: 1. No PE. 2. Bilateral pneumonia. Assessment and Plan - Diagnosis (1) Pneumonia due to COVID-19 virus Is this a current diagnosis for this admission?: Yes (2) Acute hypoxemic respiratory failure Is this a current diagnosis for this admission?: Yes (3) HTN (hypertension) Qualifiers: Hypertension type: essential hypertension Qualified Code(s): I10 - Essential (primary) hypertension Is this a current diagnosis for this admission?: Yes (4) HLD (hyperlipidemia) Qualifiers: Hyperlipidemia type: unspecified Qualified Code(s): E78.5 - Hyperlipidemia, unspecified Is this a current diagnosis for this admission?: Yes (5) History of cervical cancer Is this a current diagnosis for this admission?: Yes - Plan Summary Summary: (1) Pneumonia due to COVID-19 virus Is this a current diagnosis for this admission?: Yes Plan: -Symptoms/history consistent with covid-19 infection -Covid-19 test: Positive on 03/20, symptoms began on 03/18 -CXR showed: Bilateral infiltrates -CTPA showed: Negative for PE, bilateral pneumonia consistent with COVID-19 -standard of care vitamin supplements: zinc, ascorbic acid, vitamin d, melatonin -maintain magnesium of 2 mg/dL or higher -Current literature recommends against the use of remdesivir, plaquenil, and convalescent plasma -supplemental oxygen and BiPAP/CPAP as needed -prn combivent/nebs as able -do not hold anticoagulation unless actively bleeding or platelet count <50 -close monitoring for acute respiratory decline requiring ICU transfer and intubation -ivermectin/doxycycline combination therapy Improving (2) Acute hypoxemic respiratory failure Is this a current diagnosis for this admission?: Yes Plan: Source is COVID-19 pneumonia Treatment as above Supplemental oxygen and positive pressure as needed (3) HTN (hypertension) Qualifiers: Hypertension type: essential hypertension Qualified Code(s): I10 - Essential (primary) hypertension Is this a current diagnosis for this admission?: Yes Plan: Home medication continued (4) HLD (hyperlipidemia) Qualifiers: Hyperlipidemia type: unspecified Qualified Code(s): E78.5 - Hyperlipidemia, unspecified Is this a current diagnosis for this admission?: Yes Plan: Diet controlled (5) History of cervical cancer Is this a current diagnosis for this admission?: Yes Plan: Status post total hysterectomy - Time Time Spent with patient: 35 or more minutes Medications reviewed and adjusted accordingly: Yes Anticipated Discharge Disposition: Home with Home Health Anticipated Discharge Timeframe: within 48 hours - Inpatient Certification Based on my medical assessment, after consideration of the patient's comorbidities, presenting symptoms, or acuity I expect that the services needed warrant INPATIENT care.: Yes I certify that my determination is in accordance with my understanding of Medicare's requirements for reasonable and necessary INPATIENT services [42 CFR 412.3e].: Yes Medical Necessity: Significant Comorbidiites Make Outpatient Treatment Too Risky, Need Close Monitoring Due to Risk of Patient Decompensation, Need For Continuous Telemetry Monitoring, Risk of Complication if Not Cared For in Hospital, Risk of Diagnosis Which Will Require Inpatient Eval/Care/Monitoring
[2020-03-26] MEDS: IVERMECTIN 3 MG TABLET PO SCH (17:46)
[2020-03-26] MEDS: DOXYCYCLINE HYCLATE 100 MG in DEXTROSE 5%-WATER 250 ML IV SCH (22:10)
[2020-03-26] MEDS: MELATONIN 5 MG TABLET PO SCH (22:11)
[2020-03-27 01:41] LABS: APPEARANCE,URINE SLIGHTLY-CLOUDY; BILIRUBIN,URINE NEGATIVE (NEGATIVE); COLOR,URINE YELLOW; GLUCOSE, URINE NEGATIVE (NEGATIVE); KETONES,URINE NEGATIVE (NEGATIVE); LEUKOCYTE ESTERASE,URINE NEGATIVE (NEGATIVE); NITRITE,URINE NEGATIVE (NEGATIVE); PROTEIN,URINE NEGATIVE (NEGATIVE); URINE SPECIFIC GRAVITY 1.014
[2020-03-27] MEDS: ENOXAPARIN SODIUM INJ 60 MG/0.6 ML DISP.SYRIN SUBCUT SCH ×2 (05:47→17:20)
[2020-03-27 06:10] LABS: HEMATOCRIT 28.2 % (36.0-47.0); HEMOGLOBIN 9.4 g/dL (12.0-15.5); MEAN CORPUSCULAR HEMOGLOBIN 27.9 pg (27.0-33.4); MEAN CORPUSCULAR HGB CONC 33.4 g/dL (32.0-36.0); MEAN CORPUSCULAR VOLUME 83 fl (80-97); PLATELET COUNT 312 10^3/uL (150-450); RED BLOOD COUNT 3.38 10^6/uL (3.72-5.28); RED CELL DISTRIBUTION WIDTH 13.9 % (11.5-14.0); WHITE BLOOD COUNT 3.4 10^3/uL (4.0-10.5)
[2020-03-27 06:27] LABS: BLOOD UREA NITROGEN 9 mg/dL (7-20); CALCIUM 8.7 mg/dL (8.4-10.2); GLUCOSE 100 mg/dL (75-110); POTASSIUM 3.8 mmol/L (3.6-5.0)
[2020-03-27 06:30] LABS: CARBON DIOXIDE 29 mmol/L (22-30); CHLORIDE 101 mmol/L (98-107)
[2020-03-27 06:44] LABS: ANION GAP 3 (5-19); C-REACTIVE PROTEIN 187.5 mg/L (<10.0)
[2020-03-27 07:08] LABS: ABSOLUTE LYMPHOCYTES# (MANUAL) 0.9 10^3/uL (0.5-4.7); ABSOLUTE MONOCYTES # (MANUAL) 0.3 10^3/uL (0.1-1.4); BASOPHILS % (MANUAL) 0 % (0-2); EOSINOPHILS % (MANUAL) 4 % (0-6); LYMPHOCYTES % (MANUAL) 27 % (13-45); MONOCYTES % (MANUAL) 9 % (3-13); NUCLEATED RED BLOOD CELLS 1 /100 WBC (0); SEGMENTED NEUTROPHILS % (MAN) 60 % (42-78); TOTAL CELLS COUNTED 100
[2020-03-27 07:09] LABS: PLATELET COMMENT ADEQUATE
[2020-03-27] MEDS: ASCORBIC ACID 500 MG TABLET PO SCH ×2 (10:33→17:20)
[2020-03-27] MEDS: DOCUSATE SODIUM 100 MG CAPSULE PO SCH (10:33)
[2020-03-27] MEDS: ZINC SULFATE 220 MG CAPSULE PO SCH (10:33)
[2020-03-27] MEDS: VITAMIN B COMPLEX TABLET PO SCH (10:33)
[2020-03-27] MEDS: LOSARTAN POTASSIUM 50 MG TABLET PO SCH (10:33)
[2020-03-27] MEDS: CHOLECALCIFEROL (D3) 1,000 UNIT (25 MCG) TABLET PO SCH (10:33)
[2020-03-27] MEDS ORDERED: METHYLPREDNISOLONE INJ 40 MG/1 ML SDV IV SCH (11:30)
[2020-03-27 16:18] VITALS: BP 123/66
--- NOTE | 2020-03-27 17:37 | PDOC DISCHARGE SUMMARY ---
Impression - Admit/DC Date/PCP Admission Date/Primary Care Provider: 03/25/20 15:22 Discharge Date: 03/27/20 - Discharge Diagnosis (1) Pneumonia due to COVID-19 virus Is this a current diagnosis for this admission?: Yes (2) Acute hypoxemic respiratory failure Is this a current diagnosis for this admission?: Yes (3) HTN (hypertension) Is this a current diagnosis for this admission?: Yes (4) HLD (hyperlipidemia) Is this a current diagnosis for this admission?: Yes (5) History of cervical cancer Is this a current diagnosis for this admission?: Yes - Assessment Summary: KARINA LAROSE is a 69 year old female with past medical history significant for HTN, HLD, cervical cancer status post total hysterectomy presents to the ED with 8-day history progressive headache/diarrhea/shortness of breath/POSEY which patient states started on 03/18 and she subsequently had a COVID-19 test which came back positive on 03/20. From there, patient symptoms gradually worsened until she was rather short of breath and required evaluation in the ED. Her also tested positive for COVID-19 and he is currently being admitted to the hospital as well reportedly. Patient's rapid Covid test in the ED was negative though this is very likely a false negative and she will be treated as Covid positive. Patient denies any fever/chills/cough. On admission, labs revealed very mild hypokalemia and oxygen desaturation with any ambulation dropping at times down into the 70s and 80s. Patient does not wear oxygen at home. Patient initially refused admission because her friends have been telling her she would get much worse Covid if she was surrounded by other people with Covid however the ED physician convince her to stay in the hospital and she agreed to admission. She was started on [facility] COVID-19 treatment protocol. 03/26/2020 Pt doing well today, inflammatory markers will be rechecked tomorrow. I expect these to be lower on the other check tomorrow. Patient has saturation 90% on 2 L nasal cannula. I believe we can start weaning her oxygen in the next 24 to 48 hours. Overall, she appears to be doing quite well all things considered. Her urine culture is growing gram-negative rods although the UA did not show clear evidence of infection and she has no urinary complaints. She has no new complaints today. On day of discharge, patient successfully weaned off of supplemental oxygen, lungs are clear, and patient states she feels significantly improved. She is in full agreement with being discharged home. She will be discharged on a prednisone taper, appropriate. Patient was instructed to return to the hospital if her breathing status worsens and she feels that she is not improving on outpatient steroids. She must follow-up with her PCP within 1 week and she is encouraged to monitor her oxygen saturation at home with a portable finger pulse oximeter. was also present during our discussion about discharge today and he had no concerns as well. Patient was prescribed apixaban by her PCP and she can continue this for 14 days after discharge and then stop it assuming she has recovered back to baseline and PCP agrees. She does not have any thrombosis history or A. fib that she would need to continue this permanently for. (1) Pneumonia due to COVID-19 virus Is this a current diagnosis for this admission?: Yes Plan: -Symptoms/history consistent with covid-19 infection -Covid-19 test: Positive on 03/20, symptoms began on 03/18 -CXR showed: Bilateral infiltrates -CTPA showed: Negative for PE, bilateral pneumonia consistent with COVID-19 -standard of care vitamin supplements: zinc, ascorbic acid, vitamin d, melatonin -maintain magnesium of 2 mg/dL or higher -Current literature recommends against the use of remdesivir, plaquenil, and convalescent plasma -supplemental oxygen and BiPAP/CPAP as needed -prn combivent/nebs as able -do not hold anticoagulation unless actively bleeding or platelet count <50 -close monitoring for acute respiratory decline requiring ICU transfer and intubation -ivermectin/doxycycline combination therapy Significantly improved from admission, no longer requiring supplemental oxygen Apixaban prescribed by PCP prior to admission, continue for 14 days after discharge then stop (2) Acute hypoxemic respiratory failure Is this a current diagnosis for this admission?: Yes Plan: Source is COVID-19 pneumonia Treatment as above Supplemental oxygen and positive pressure as needed (3) HTN (hypertension) Qualifiers: Hypertension type: essential hypertension Qualified Code(s): I10 - Essential (primary) hypertension Is this a current diagnosis for this admission?: Yes Plan: Home medication continued (4) HLD (hyperlipidemia) Qualifiers: Hyperlipidemia type: unspecified Qualified Code(s): E78.5 - Hyperlipidemia, unspecified Is this a current diagnosis for this admission?: Yes Plan: Diet controlled (5) History of cervical cancer Is this a current diagnosis for this admission?: Yes Plan: Status post total hysterectomy - Additional Information Resuscitation Status: Full Code Discharge Diet: As Tolerated, Cardiac Discharge Activity: Activity As Tolerated Referrals: JULIEN STEVENS MD [Primary Care Provider] - 04/14/20 1:00 pm Prescriptions: Prednisone [Deltasone 10 mg Tablet] 10 mg PO ASDIR PRN #32 tablet PRN Reason: Melatonin [Melatonin 5 mg Tablet] 10 mg PO QHS #14 tablet Doxycycline Hyclate [Vibramycin] 100 mg PO DAILY 5 Days #5 capsule Vitamin B Complex [Vitamin B Complex Tablet] 1 tab PO DAILY #14 tablet Ascorbic Acid [Vitamin C 500 mg Tablet] 500 mg PO BID #28 tablet Zinc Sulfate [Zinc-220 Capsule] 220 mg PO DAILY #14 capsule Home Medications: Telmisartan [Micardis] 40 mg PO DAILY 02/18/17 Apixaban [Eliquis 2.5 mg Tablet] 2.5 mg PO BID 03/25/20 Ergocalciferol (Vitamin D2) [Drisdol 50,000 unit (1.25MG) Capsule] 50,000 units PO Q7D PRN 03/25/20 Potassium Chloride [Klor-Con M20] 20 meq PO DAILY 03/25/20 Ascorbic Acid [Vitamin C 500 mg Tablet] 500 mg PO BID #28 tablet 03/27/20 Doxycycline Hyclate [Vibramycin] 100 mg PO DAILY 5 Days #5 capsule 03/27/20 Melatonin [Melatonin 5 mg Tablet] 10 mg PO QHS #14 tablet 03/27/20 Prednisone [Deltasone 10 mg Tablet] 10 mg PO ASDIR PRN #32 tablet 03/27/20 Vitamin B Complex [Vitamin B Complex Tablet] 1 tab PO DAILY #14 tablet 03/27/20 Zinc Sulfate [Zinc-220 Capsule] 220 mg PO DAILY #14 capsule 03/27/20 History of Present Illiness History of Present Illness: KARINA LAROSE is a 69 year old female with past medical history significant for HTN, HLD, cervical cancer status post total hysterectomy presents to the ED with 8-day history progressive headache/diarrhea/shortness of breath/POSEY which patient states started on 03/18 and she subsequently had a COVID-19 test which came back positive on 03/20. From there, patient symptoms gradually worsened until she was rather short of breath and required evaluation in the ED. Her also tested positive for COVID-19 and he is currently being admitted to the hospital as well reportedly. Patient's rapid Covid test in the ED was negative though this is very likely a false negative and she will be treated as Covid positive. Patient denies any fever/chills/cough. On admission, labs revealed very mild hypokalemia and oxygen desaturation with any ambulation dropping at times down into the 70s and 80s. Patient does not wear oxygen at home. Patient initially refused admission because her friends have been telling her she would get much worse Covid if she was surrounded by other people with Covid however the ED physician convince her to stay in the hospital and she agreed to admission. She was started on [facility] COVID-19 treatment protocol. Physical Exam Vital Signs: Temp Pulse Resp BP Pulse Ox 98.4 F 66 18 120/58 L 86 L 03/27/20 15:06 03/27/20 15:06 03/27/20 15:06 03/27/20 15:06 03/27/20 15:06 Intake & Output 03/26/20 03/27/20 03/28/20 06:59 06:59 06:59 Intake Total 250 970 Output Total 655 650 Balance -405 320 Weight 100.8 kg 101.5 kg Results Laboratory Results: WBC 3.4 10^3/uL (4.0-10.5) L 03/27/20 05:36 RBC 3.38 10^6/uL (3.72-5.28) L 03/27/20 05:36 Hgb 9.4 g/dL (12.0-15.5) L 03/27/20 05:36 Hct 28.2 % (36.0-47.0) L 03/27/20 05:36 MCV 83 fl (80-97) 03/27/20 05:36 MCH 27.9 pg (27.0-33.4) 03/27/20 05:36 MCHC 33.4 g/dL (32.0-36.0) 03/27/20 05:36 RDW 13.9 % (11.5-14.0) 03/27/20 05:36 Plt Count 312 10^3/uL (150-450) 03/27/20 05:36 Lymph % (Auto) Not Reportable 03/27/20 05:36 [place] % (Auto) Not Reportable 03/27/20 05:36 Eos % (Auto) Not Reportable 03/27/20 05:36 Baso % (Auto) Not Reportable 03/27/20 05:36 Absolute Neuts (auto) Not Reportable 03/27/20 05:36 Absolute Lymphs (auto) Not Reportable 03/27/20 05:36 Absolute Monos (auto) Not Reportable 03/27/20 05:36 Absolute Eos (auto) Not Reportable 03/27/20 05:36 Absolute Basos (auto) Not Reportable 03/27/20 05:36 Total Counted 100 03/27/20 05:36 Seg Neutrophils % Not Reportable 03/27/20 05:36 Seg Neuts % (Manual) 60 % (42-78) 03/27/20 05:36 Lymphocytes % (Manual) 27 % (13-45) 03/27/20 05:36 Monocytes % (Manual) 9 % (3-13) 03/27/20 05:36 Eosinophils % (Manual) 4 % (0-6) 03/27/20 05:36 Basophils % (Manual) 0 % (0-2) 03/27/20 05:36 Abs Neuts (Manual) 2.0 10^3/uL (1.7-8.2) 03/27/20 05:36 Abs Lymphs (Manual) 0.9 10^3/uL (0.5-4.7) 03/27/20 05:36 Abs Monocytes (Manual) 0.3 10^3/uL (0.1-1.4) 03/27/20 05:36 Absolute Eos (Manual) 0.1 10^3/uL (0.0-0.6) 03/27/20 05:36 Abs Basophils (Manual) 0.0 10^3/uL (0.0-0.2) 03/27/20 05:36 Nucleated RBCs 1 /100 WBC (0) 03/27/20 05:36 Platelet Comment ADEQUATE 03/27/20 05:36 PT 14.8 SEC (11.4-15.4) 03/25/20 11:55 INR 1.14 03/25/20 11:55 D-Dimer 2.39 ug/mL (0.00-0.50) H 03/25/20 11:55 VBG pH 7.46 (7.30-7.42) H 03/25/20 12:45 VBG pCO2 38.9 mmHg (35-63) 03/25/20 12:45 VBG HCO3 27.2 mmol/L (20-32) 03/25/20 12:45 VBG Base Excess 3.3 mmol/L 03/25/20 12:45 Sodium 133.2 mmol/L (137-145) L 03/27/20 05:36 Potassium 3.8 mmol/L (3.6-5.0) 03/27/20 05:36 Chloride 101 mmol/L (98-107) 03/27/20 05:36 Carbon Dioxide 29 mmol/L (22-30) 03/27/20 05:36 Anion Gap 3 (5-19) L 03/27/20 05:36 BUN 9 mg/dL (7-20) 03/27/20 05:36 Creatinine 0.51 mg/dL (0.52-1.25) L 03/27/20 05:36 Est GFR ( Amer) > 60 (>60) 03/27/20 05:36 Est GFR (MDRD) Non-Af > 60 (>60) 03/27/20 05:36 Glucose 100 mg/dL (75-110) 03/27/20 05:36 Lactic Acid 0.9 mmol/L (0.7-2.1) 03/25/20 22:30 Calcium 8.7 mg/dL (8.4-10.2) 03/27/20 05:36 Phosphorus 3.1 mg/dL (2.5-4.5) 03/26/20 05:54 Magnesium 2.2 mg/dL (1.6-2.3) 03/26/20 05:54 Ferritin 2640.00 ng/mL (11.1-264.0) H 03/25/20 11:55 Total Bilirubin 1.0 mg/dL (0.2-1.3) 03/25/20 11:55 Direct Bilirubin 0.2 mg/dL (0.0-0.4) 03/25/20 11:55 Neonat Total Bilirubin Not Reportable 03/25/20 11:55 Neonat Direct Bilirubin Not Reportable 03/25/20 11:55 Neonat Indirect Bili Not Reportable 03/25/20 11:55 AST 209 U/L (14-36) H 03/25/20 11:55 ALT 250 U/L (<35) H 03/25/20 11:55 Alkaline Phosphatase 66 U/L (38-126) 03/25/20 11:55 Troponin I < 0.012 ng/mL 03/25/20 11:55 C-Reactive Protein 187.5 mg/L (<10.0) H 03/27/20 05:36 Total Protein 7.4 g/dL (6.3-8.2) 03/25/20 11:55 Albumin 3.6 g/dL (3.5-5.0) 03/25/20 11:55 Urine Color YELLOW 03/27/20 01:15 Urine Appearance SLIGHTLY-CLOUDY 03/27/20 01:15 Urine pH 6.0 (5.0-9.0) 03/27/20 01:15 Ur Specific [place] 1.014 03/27/20 01:15 Urine Protein NEGATIVE mg/dL (NEGATIVE) 03/27/20 01:15 Urine Glucose (UA) NEGATIVE mg/dL (NEGATIVE) 03/27/20 01:15 Urine Ketones NEGATIVE mg/dL (NEGATIVE) 03/27/20 01:15 Urine Blood NEGATIVE (NEGATIVE) 03/27/20 01:15 Urine Nitrite NEGATIVE (NEGATIVE) 03/27/20 01:15 Urine Bilirubin NEGATIVE (NEGATIVE) 03/27/20 01:15 Urine Urobilinogen 2.0 mg/dL (<2.0) H 03/27/20 01:15 Ur Leukocyte Esterase NEGATIVE (NEGATIVE) 03/27/20 01:15 Urine WBC (Auto) 3 /HPF 03/27/20 01:15 Urine RBC (Auto) 2 /HPF 03/27/20 01:15 Urine Bacteria (Auto) TRACE /HPF 03/25/20 14:22 Squamous Epi Cells Auto 1 /HPF 03/27/20 01:15 Urine Mucus (Auto) RARE /LPF 03/25/20 14:22 Urine Ascorbic Acid 40 (NEGATIVE) H 03/27/20 01:15 03/25/20 11:55 Troponin I < 0.012 Impressions: Chest X-Ray 03/25/20 11:34 IMPRESSION: New bibasilar opacities concerning for infection. Possible component of atelectasis. Chest/Abdomen CTA 03/25/20 11:42 IMPRESSION: 1. No PE. 2. Bilateral pneumonia. Stroke Is this a Stroke Patient?: No Acute Heart Failure Is this a Heart Failure Patient?: No
== END 2020-03-27 18:22 | disposition home or self-care (01) | DRG 177 ==
LOC: ER 11:32 → EH 15:22 → 3W 19:39
PROVIDERS: ADMIT Internal Medicine; ATTEND Internal Medicine
DX: U07.1 COVID-19 (principal); J12.89 Other viral pneumonia; J96.01 Acute respiratory failure with hypoxia; E66.01 Morbid (severe) obesity due to excess calories; Z68.32 Body mass index [BMI] 32.0-32.9, adult; I10 Essential (primary) hypertension; E78.5 Hyperlipidemia, unspecified; E87.6 Hypokalemia; Z85.41 Personal history of malignant neoplasm of cervix uteri; Z90.710 Acquired absence of both cervix and uterus; Z79.899 Other long term (current) drug therapy; Z79.82 Long term (current) use of aspirin
CPT/HCPCS: 36415; 71045; 71275; 80048; 80053; 81001; 82728; 82803; 83605; 83735; 84100; 84484; 85025; 85379; 85610; 86140; 87040; 87086; 87088; 87186; 93005; 93010; 99285; J1650; J2920; J3490; J7060